=== PATIENT | male | born 1975 | race Two or more races ===

== ENCOUNTER 2022-05-17 11:05 | Emergency (ER) | payer MEDICAID ==
[~2022-05-17] VITALS: Ht 177.8 cm; Wt 95.3 kg
[2022-05-17 12:43] VITALS: BP 166/90
[2022-05-17] MEDS ORDERED: CEPH-509 PO (14:24)
[2022-05-17] MEDS ORDERED: BACIOIN15 TOP (14:24)
[2022-05-17] MEDS ORDERED: cefTRIAXone SOD 1,000 MG VL IM ONE (14:30)
== END 2022-05-17 14:32 | disposition home or self-care (01) ==
LOC: ER 11:05
DX: T25.222A Burn of second degree of left foot, initial encounter (principal); F17.210 Nicotine dependence, cigarettes, uncomplicated; X10.2XXA Contact with fats and cooking oils, initial encounter; Y93.89 Activity, other specified; Y92.89 Other specified places as the place of occurrence of the external cause; Y99.8 Other external cause status
CPT/HCPCS: 96372; 99283; J0696